=== PATIENT | female | born 1985 | race Caucasian/White ===

== ENCOUNTER 2021-12-25 18:37 | Emergency (ER) | payer OTHER, SELFPAY ==
[2021-12-25 18:47] VITALS: BP 140/82; PULSE 81; RESP 18; TEMP 36.3; O2SAT 100
--- NOTE | 2021-12-25 19:28 | PC.NURSE ---
Dr. Escobedo at bedside to assess pt.
--- NOTE | 2021-12-25 19:32 | ED_ITS ---
HPI - Dental/Oral General Chief complaint: Dental/Oral Stated complaint: dental pain Time Seen by Provider: 12/25/21 19:20 History of Present Illness HPI Narrative: Patient is a 36-year-old female who presents ER with right-sided dental pain. Located on tooth #2. Also at tooth #31. No fevers or chills or sweats. No facial swelling. Has been hurting over the last 2 days. Has been abating the pain with Tylenol and Orajel and other [id number] remedies. She also used some oral mouthwash. Patient reports that prior to arrival she had significant increase in her pain that made her cry. She is concerned she may have an infection. She has history of significant dental decay and is in need of multiple teeth to be pulled. Review of Systems Review of Systems: All systems reviewed & are unremarkable except as noted in HPI and below Constitutional: Constitutional: Denies chills, Denies fatigue and Denies fever(s) ENT: Denies nasal congestion and Denies sore throat Comments: Dental pain Gastrointestinal: Gastrointestinal: Denies nausea and Denies vomiting PMFSH Past Medical History Medical History (Updated 12/25/21 @ 19:37 by Sushil Escobedo MD) Healthy female adult Surgical History Surgical History (Updated 12/25/21 @ 19:35 by Sushil Escobedo MD) No pertinent past surgical history Exam Narrative: GENERAL: Well-appearing, well-nourished, and in no acute distress. HEAD: Normocephalic, atraumatic. ENT: Mucous membranes moist. Poor dentition without obvious dental abscess in the upper or lower aspect of the mouth on the right side. Multiple fractured teeth. NECK: Supple. NEURO: Alert and oriented x3. PSYCH: Normal mood and affect. Course Course Emergency Course: Discharge home with oral antibiotics for presumed dental infection but no abscess. Vital Signs Vital signs: Vital Signs Temperature 97.4 F L 12/25/21 18:47 Pulse Rate 81 12/25/21 18:47 Respiratory Rate 18 12/25/21 18:47 Blood Pressure 140/82 12/25/21 18:47 Pulse Oximetry 100 12/25/21 18:47 Oxygen Delivery Room Air 12/25/21 18:47 Temperature 97.4 F L 12/25/21 18:47 Pulse Rate 81 12/25/21 18:47 Respiratory Rate 18 12/25/21 18:47 Blood Pressure 140/82 12/25/21 18:47 Pulse Oximetry 100 12/25/21 18:47 Oxygen Delivery Room Air 12/25/21 18:47 Discharge Plan Discharge Clinical Impression: Toothache Patient Disposition: Home, Self-Care Condition: Stable Instructions: Toothache (ED) Additional Instructions: Return the ER if you have fever over 100.4 ?F, you cannot breathe, you cannot swallow, you have additional concerns. Prescriptions: New amoxicillin-pot clavulanate 875-125 mg tablet 1 tablet PO Q12H Qty: 14 0RF Follow-up/Referrals: Dental Referral Line [Outside] - 1 Week PHYSICIAN,DIRECTOR [facility] NURSING [Primary Care Provider] -
[2021-12-25] MEDS: Please add drug allergy info to patient profile. 1 EACH XX (19:44)
[2021-12-25] MEDS: HYDROcodone/acetaminophen (*CRX) 5-325 MG TABLET 1 TAB PO (19:51)
== END 2021-12-25 20:30 | disposition home or self-care (01) ==
LOC: ANHED 20:00
PROVIDERS: Emergency Provider Emergency Medicine
DX: K08.89 Other specified disorders of teeth and supporting structures (principal)
CPT/HCPCS: 99283; A9270

== ENCOUNTER 2022-04-29 14:49 | Emergency (ER) | payer BC, SELFPAY ==
[2022-04-29 14:58] VITALS: BP 151/89; PULSE 88; RESP 16; TEMP 36.2; O2SAT 99
--- NOTE | 2022-04-29 17:26 | ED.DENTAL ---
HPI - Dental/Oral General Chief complaint: Dental/Oral Stated complaint: Mouth pain Time Seen by Provider: 04/29/22 17:00 Source: patient Mode of arrival: ambulatory Limitations: no limitations History of Present Illness HPI Narrative: This is a 36-year-old female that presents emergency department for toothache present since this morning. Reports she has had several decaying teeth that have had to be pulled. Reports a left upper molar started hurting her this morning. She took Tylenol with little relief. Denies fever, erythema, edema, or drainage. MD Complaint: tooth pain Location: Tooth # (14) Related Data Allergies Allergy/AdvReac Type Severity Reaction Status Date / Time morphine Allergy Unknown Verified 12/25/21 19:43 Review of Systems Review of Systems: CONSTITUTIONAL: Denies fever ENT: Reports dentalgia All systems reviewed & are unremarkable except as noted in HPI and below PMFSH Past Medical History Medical History (Updated 04/29/22 @ 17:30 by Sindi Tay PA-C) Healthy female adult Surgical History Surgical History (Updated 12/25/21 @ 19:35 by Sushil Escobedo MD) No pertinent past surgical history Social History Social History (Updated 04/29/22 @ 17:27 by Sindi Tay PA-C) Smoking status: Never smoker Exam Narrative: GENERAL: Well-appearing, well-nourished, and in no acute distress. HEAD: Normocephalic, atraumatic. EYES: EOMI. ENT: Mucous membranes moist. Oropharynx without tonsillar hypertrophy exudate or other lesions. Several fractured teeth. Tooth #14 tender to palpation without surrounding erythema or fluctuance to suggest abscess NECK: Supple. No adenopathy or masses. CHEST: No respiratory distress. HEART: Regular rate EXTREMITIES: Normal range of motion. No edema. SKIN: Warm, dry, no rash. NEURO: No focal deficits. Alert and oriented x3. PSYCH: Normal mood and affect Course Vital Signs Vital signs: Vital Signs Temperature 97.1 F L 04/29/22 14:58 Pulse Rate 88 04/29/22 14:58 Respiratory Rate 16 04/29/22 14:58 Blood Pressure 151/89 H 04/29/22 14:58 Pulse Oximetry 99 04/29/22 14:58 Oxygen Delivery Room Air 04/29/22 14:58 Temperature 97.1 F L 04/29/22 14:58 Pulse Rate 88 04/29/22 14:58 Respiratory Rate 16 04/29/22 14:58 Blood Pressure 151/89 H 04/29/22 14:58 Pulse Oximetry 99 04/29/22 14:58 Oxygen Delivery Room Air 04/29/22 14:58 MDM - Dental/Oral MDM Narrative Medical decision making narrative: Patient presents emergency department for dentalgia present since this morning. She is afebrile and nontoxic-appearing. No evidence for abscess on exam. Patient will be discharged with oral antibiotics. Instructed to have close follow-up with her dentist. She was given warnings to return to the ER Differential Diagnosis Differential diagnosis: Likely dental caries, toothache, dental abscess and fracture of tooth Critical Care Time Critical Care Time Critical Care Time: No Discharge Plan Discharge Clinical Impression: Toothache Patient Disposition: Home, Self-Care Condition: Stable Instructions: Antibiotic Form, Toothache (ED) Additional Instructions: Return to the Emergency Department if you experience fever >101, increasing swelling and redness of your tooth, or any other symptoms that are concerning to you Take antibiotic as prescribed. Tylenol or Ibuprofen as needed for pain. Follow up with your dentist Prescriptions: New amoxicillin-pot clavulanate 875-125 mg tablet 1 tablet PO Q12H 10 Days Qty: 20 0RF No Action amoxicillin-pot clavulanate 875-125 mg tablet 1 tablet PO Q12H Qty: 14 0RF hydrocodone-acetaminophen 5-325 mg tablet 1 tablet PO Q6H PRN (Reason: pain) Qty: 10 0RF Follow-up/Referrals: Ramon Elias MD [Primary Care Provider] -
[2022-04-29] MEDS: KETOROLAC 30 MG/ML VIAL (*BKC) IM (17:45)
== END 2022-04-29 18:15 | disposition home or self-care (01) ==
PROVIDERS: Emergency Provider Physician Assistant; PCP Emergency Medicine
DX: K08.89 Other specified disorders of teeth and supporting structures (principal)
CPT/HCPCS: 96372; 99283; J1885

== ENCOUNTER 2022-05-04 18:15 | Emergency (ER) | payer BC, SELFPAY ==
[2022-05-04 18:18] VITALS: BP 149/103; PULSE 90; RESP 18; TEMP 37.4; O2SAT 98
--- NOTE | 2022-05-04 19:05 | PC.NURSE ---
Patient reports that she does not even need a room, she requests pain medications out of the waiting room and to leave the ED. patient told that we are waiting on a room for a doctor to see her and place orders.
--- NOTE | 2022-05-04 19:47 | PC.NURSE ---
patient very loudly on phone complaining about wait times and not being given pain medication in waiting room or being told how long the wait will be. previously attempted to explain to patient that i can not tell her a wait time as i dont know what ambulanace or critcal patient would come in. patient then came to desk again asking why it is taking so long as she has seen several people that came in after her come back and leave before her explained to her that they were not patients they were visitors. patient taken to clean room at this time
--- NOTE | 2022-05-04 20:00 | ED.DENTAL ---
HPI - Dental/Oral General Chief complaint: Dental/Oral Stated complaint: dental pain right side Time Seen by Provider: 05/04/22 19:50 Source: RN notes reviewed History of Present Illness HPI Narrative: Patient presents emergency department from home for dental pain. He states she has history of numerous dental caries and has had several teeth pulled before in the past she states she needs to have surgery to have several other teeth pulled and states she does have a flipper in her upper mouth. She states that she has been having increasing dental pain she states has been taking Tylenol and ibuprofen at home with last dose of ibuprofen this morning. States she has been on Augmentin since last week when she was here for her dental pain but continues to experience dental pain she denies any fevers or chills she denies any known new injury to the teeth Related Data Allergies Allergy/AdvReac Type Severity Reaction Status Date / Time morphine Allergy Unknown Verified 05/04/22 18:22 Review of Systems Review of Systems: Gen.: Denies fevers or chills Eyes: Denies eye pain or visual change ENT: See HPI Respiratory: Denies shortness of breath or cough GI: Denies abdominal pain nausea, emesis Musculoskeletal: Denies neck pain Neuro: Denies headache or weakness Skin: Denies rash Except as documented, all other systems reviewed and negative [facility] Past Medical History Medical History Healthy female adult Surgical History Surgical History (Updated 12/25/21 @ 19:35 by Sushil Escobedo MD) No pertinent past surgical history Social History Social History Smoking status: Never smoker Exam Narrative: APPEARANCE: No acute distress, nontoxic, resting in bed HEENT: Normocephalic, atraumatic, TMs clear bilaterally, nares patent, oral mucosa moist, airway patent, numerous dental caries with tenderness over teeth 1 and 2 that are carious down to the gum mild erythema of the gum with no fluctuance airway patent RESPIRATORY: No respiratory distress MUSCULOSKELETAl: Moves all extremities. NEURO: Awake and alert. Following commands, speech normal, no focal deficits SKIN:: Warm, dry. Normal Color PSYCHIATRIC: Normal affect/mood Course Course Emergency Course: Reviewed old records. Patient has been on Augmentin since the will switch to clindamycin Discussed with patient results of workup and diagnosis. Discussed need for follow-up with primary care, proper use of medication, and reasons to return to the emergency department. Patient understands and agrees to current treatment plan Vital Signs Vital signs: Vital Signs Temperature 99.3 F 05/04/22 18:18 Pulse Rate 90 05/04/22 18:18 Respiratory Rate 18 05/04/22 18:18 Blood Pressure 149/103 H 05/04/22 18:18 Pulse Oximetry 98 05/04/22 18:18 Oxygen Delivery Room Air 05/04/22 18:18 Temperature 99.3 F 05/04/22 18:18 Pulse Rate 90 05/04/22 18:18 Respiratory Rate 18 05/04/22 18:18 Blood Pressure 149/103 H 05/04/22 18:18 Pulse Oximetry 98 05/04/22 18:18 Oxygen Delivery Room Air 05/04/22 18:18 Discharge Plan Discharge Clinical Impression: Dental caries, Toothache Patient Disposition: Home, Self-Care Condition: Stable Instructions: Antibiotic Form, Toothache (ED) Additional Instructions: Return for increasing pain fever or any other symptoms or concern. Stop taking Augmentin instead take clindamycin as prescribed Prescriptions: New ibuprofen 600 mg tablet 600 mg PO TID PRN (Reason: pain) Qty: 14 0RF clindamycin HCl 300 mg capsule 300 mg PO Q8H Qty: 30 0RF No Action amoxicillin-pot clavulanate 875-125 mg tablet 1 tablet PO Q12H Qty: 14 0RF hydrocodone-acetaminophen 5-325 mg tablet 1 tablet PO Q6H PRN (Reason: pain) Qty: 10 0RF amoxicillin-pot clavulanate 875-125 mg tablet 1 tablet
[2022-05-04 20:04] VITALS: BP 122/85; PULSE 88; RESP 18
[2022-05-04] MEDS: CLINDAMYCIN HCL 150 MG CAP 300 MG PO (20:28)
[2022-05-04] MEDS: KETOROLAC 30 MG/ML VIAL (*BKC) IM (20:28)
== END 2022-05-04 20:47 | disposition home or self-care (01) ==
PROVIDERS: Emergency Provider Emergency Medicine; PCP Emergency Medicine
DX: K02.9 Dental caries, unspecified (principal); K08.89 Other specified disorders of teeth and supporting structures
CPT/HCPCS: 96372; 99283; A9270; J1885

== ENCOUNTER 2022-08-25 07:16 | Emergency (ER) | payer OTHER, SELFPAY ==
--- NOTE | ~2022-08-25 | CT_ITS ---
EXAMINATION: CT abdomen pelvis w con INDICATION: Vomiting TECHNIQUE: Computed tomographic images of the abdomen and pelvis were obtained after the administrati on of 100 cc of Omnipaque 350 intravenous contrast. The dose-length product (DLP) was 396.45 mGy-cm. Automated exposure control and iterative reconstruction technique were employed. COMPARISON: None available FINDINGS: The lung bases are clear. The heart size is normal. The liver, spleen, pancreas, and adrena l glands are normal. There is vicarious excretion of contrast into the gallbladder from outside hospi chuy CT performed yesterday. The kidneys are unremarkable. No pathologically enlarged abdominal or pel jimmy lymph nodes are identified. The appendix is normal. No free intraperitoneal gas or evidence of alexis wel obstruction. An IUD is present in the uterus. IMPRESSION: 1. No CT correlate for the patient's symptoms. Reviewed, dictated and finalized at location A.
[2022-08-25 07:17] VITALS: BP 146/82; PULSE 75; RESP 15; TEMP 36.3; O2SAT 97
[2022-08-25 07:43] LABS: Basophils Percent Auto 0.2 % (0.2-1.2); Hemoglobin 14.3 g/dL (12.0-15.0); Immature Granulocyte Absolute 0.14 K/mm3 (0.00-0.031); Immature Granulocyte Percent A 0.6 % (0-0.5); Lymphocytes Absolute Auto 1.69 K/mm3 (0.9-3.2); Lymphocytes Percent Auto 7.1 % (18.3-44.2); Mean Corpuscular HGB Conc 34.9 g/dl (32-36); Mean Corpuscular Hemoglobin 31.4 pg (26-34); Mean Corpuscular Volume 90.1 fl (80-100); Mean Platelet Volume 9.9 fl (7.4-10.4); Monocytes Absolute Auto 1.5 K/mm3 (0.1-0.6); Monocytes Percent Auto 6.3 % (2.6-8.5); Neutrophils Absolute Auto 20.3 K/mm3 (1.3-6.7); Neutrophils Percent Auto 85.8 % (45.5-73.1); Platelet Count Result 314 k/mm3 (150-375); Red Blood Count 4.55 M/mm3 (4.2-5.4); White Blood Count 23.7 K/mm3 (4.5-10.0)
[2022-08-25 07:52] LABS: Appearance Urine Cloudy (Clear); Bacteria Urine None Seen /hpf; Bilirubin Urine Negative (Negative); Blood Urine 1+ (Negative); Color Urine Yellow (Yellow); Glucose Urine UA Negative (Negative); Ketones Urine Trace mg/dL (Negative); Leukocyte Esterase Ur Negative LEU/UL (Negative); Nitrate Urine Negative (Negative); Non Pathogenic Casts 0-2; Protein Urine 1+ mg/dL (Negative); Specific Grav Ur 1.024 (1.001-1.035); Squamous Epithelial Cell Urine Few /hpf (Few); Urobilinogen Urine 0.2 mg/dL (<2.0); WBC Urine 0-5 /hpf; pH Urine 6.5 (5.0-9.0)
[2022-08-25 07:54] LABS: Alanine Aminotransferase 25 U/L (6-35); Albumin Level 4.8 g/dL (3.5-5.1); Alkaline Phosphatase 66 U/L (38-126); Anion Gap 9 mmol/L (8-16); Aspartate Amino Transferase 31 U/L (14-36); Bilirubin,Total 1.6 mg/dL (0.2-1.3); Blood Urea Nitrogen 15 mg/dL (7-17); Calcium 9.4 mg/dL (8.4-10.2); Carbon Dioxide 28 mmol/L (22-30); Chloride 99 mmol/L (98-107); Estimated CRCL calculation 98 ml/min; Estimated Glomerular Filt Rate > 60; Glucose 135 mg/dL (65-110); Lipase 39 U/L (23-300); Potassium 3.4 mmol/L (3.4-5.0); Sodium 136 mmol/L (137-145)
[2022-08-25] MEDS: ONDANSETRON INJ 4 MG/2 ML VIAL IV PUSH ×2 (07:56→08:50)
[2022-08-25] MEDS: SODIUM CHLORIDE 0.9% IV 1,000 ML 999 ML IV CONT (07:56)
[2022-08-25 08:02] LABS: Add Urine Microscopic? YES
--- NOTE | 2022-08-25 08:04 | ED.NAVMDI ---
HPI - Nausea/Vomiting/Diarrhea General Chief complaint: Nausea/Vomiting/Diarrhea Stated complaint: N/V, Im extremely dehydrated Time Seen by Provider: 08/25/22 07:29 History of Present Illness HPI Narrative: Patient is a 37-year-old female who presents ER with reports of dehydration. Patient reports she has been having persistent nausea and vomiting over the last 24 hours. She was seen yesterday at [facility] in [place] where she had IV fluid, was prescribed metoclopramide, and discharged from the hospital. She reports she had a CT scan that was unremarkable. She cannot keep down her medications so she presented here for further evaluation. No urinary frequency urgency or dysuria. Reports she is not urinating due to the fact that she is dehydrated. No chest pain or chest pressure. No additional concerns. Related Data Allergies Allergy/AdvReac Type Severity Reaction Status Date / Time morphine Allergy Unknown Verified 08/25/22 07:31 Review of Systems Review of Systems: All systems reviewed & are unremarkable except as noted in HPI and below Constitutional: Constitutional: Denies chills, Reports fatigue and Denies fever(s) ENT: Denies nasal congestion and Denies sore throat Cardiovascular: Cardiovascular: Denies chest pain and Denies radiating jaw, neck or arm pain Gastrointestinal: Gastrointestinal: Denies abdominal pain, Denies diarrhea, Reports nausea and Reports vomiting Genitourinary: Genitourinary: Denies nocturia, Denies dysuria and Denies flank pain PMFSH Past Medical History Medical History Healthy female adult Surgical History Surgical History (Updated 12/25/21 @ 19:35 by Sushil Escobedo MD) No pertinent past surgical history Social History Social History Smoking status: Never smoker Exam Narrative: GENERAL: Well-appearing, well-nourished, and in no acute distress. HEAD: Normocephalic, atraumatic. ENT: Mucous membranes moist. NECK: Supple. CHEST: Clear to auscultation. No respiratory distress. HEART: Regular rate and rhythm. Normal peripheral pulses. ABDOMEN: Soft, nontender, nondistended. EXTREMITIES: Normal range of motion. No edema. SKIN: Warm, dry, no rash. NEURO: Alert and oriented x3. PSYCH: Normal mood and affect. Course Course Emergency Course: Patient resting comfortably. She is tolerating oral intake. Chest feels better after GI cocktail. We attempted to get results from [facility] but they were using a different name and we are using her name. Patient does have a significant leukocytosis but is felt to be a stress reaction due to her dry heaving. After recent paperwork we have still not heard from them. Patient feels comfortable discharge home. Vital Signs Vital signs: Vital Signs Temperature 97.4 F L 08/25/22 07:17 Pulse Rate 75 08/25/22 07:17 Respiratory Rate 15 08/25/22 07:17 Blood Pressure 146/82 H 08/25/22 07:17 Pulse Oximetry 97 08/25/22 07:17 Oxygen Delivery Room Air 08/25/22 07:17 Temperature 98.2 F 08/25/22 13:27 Pulse Rate 79 08/25/22 13:27 Respiratory Rate 18 08/25/22 13:27 Blood Pressure 169/107 H 08/25/22 13:27 Pulse Oximetry 98 08/25/22 13:27 Oxygen Delivery Room Air 08/25/22 07:17 MDM - Nausea/Vomiting/Diarrhea Lab Data 08/25/22 07:34 08/25/22 07:34 Labs: Lab Results 08/25/22 08/25/22 08/25/22 Range/Units 07:34 07:34 07:42 WBC 23.7 H (4.5-10.0) K/mm3 RBC 4.55 (4.2-5.4) M/mm3 Hgb 14.3 (12.0-15.0) g/dL Hct 41.0 (37.0-47.0) % MCV 90.1 (80-100) fl MCH 31.4 (26-34) pg MCHC 34.9 (32-36) g/dl RDW 13.0 (11.5-14.5) % Plt Count 314 (150-375) k/mm3 MPV 9.9 (7.4-10.4) fl Immature Gran % (Auto) 0.6 H (0-0.5) % Neut % (Auto) 85.8 H (45.5-73.1) % Lymph % (Auto) 7.1 L (18.3-44.2) %
--- NOTE | 2022-08-25 08:14 | PC.NURSE ---
Records release signed by patient for medical records from yesterday at [facility]
--- NOTE | 2022-08-25 09:10 | PC.NURSE ---
Call received from Nursing instrumentation supervisor at [facility] [place]. States patient not only was not seen in their facility yesterday, but has not ever been to their facility as a patient. MD aware. Will inquire again as to where patient was seen yesterday. Pt currently in CT scan.
[2022-08-25] MEDS: BELLADONNA ALK/PHENOB ELIX 10 ML, MAG HYDROX/ALUMINUM HYD/SIMETH 30 ML, LIDOCAINE HCL 2... PO (09:53)
[2022-08-25 09:59] VITALS: BP 158/91; PULSE 64; RESP 16; O2SAT 99
[2022-08-25 13:27] VITALS: BP 169/107; PULSE 79; RESP 18; TEMP 36.8; O2SAT 98
== END 2022-08-25 13:27 | disposition home or self-care (01) ==
PROVIDERS: Emergency Provider Emergency Medicine
DX: R11.2 Nausea with vomiting, unspecified (principal)
CPT/HCPCS: 36415; 74177; 80053; 81001; 81025; 83690; 85025; 96361; 96374; 96376; 99284; A9270; J2405; J7030; Q9967

== ENCOUNTER 2022-08-26 19:01 | Emergency (ER) | payer OTHER, SELFPAY ==
[2022-08-26 19:12] VITALS: BP 153/89; PULSE 72; RESP 18; TEMP 36.5; O2SAT 98
[2022-08-26 20:42] VITALS: BP 157/91; PULSE 67
[2022-08-26 20:43] VITALS: BP 155/98; PULSE 75
[2022-08-26 20:44] VITALS: BP 177/97; PULSE 69
[2022-08-26 20:45] LABS: Basophils Absolute Auto 0.1 K/mm3 (0.0-0.1); Basophils Percent Auto 0.3 % (0.2-1.2); Hematocrit 39.8 % (37.0-47.0); Hemoglobin 14.1 g/dL (12.0-15.0); Immature Granulocyte Percent A 0.6 % (0-0.5); Lymphocytes Absolute Auto 1.84 K/mm3 (0.9-3.2); Lymphocytes Percent Auto 10.3 % (18.3-44.2); Mean Corpuscular HGB Conc 35.4 g/dl (32-36); Mean Corpuscular Volume 87.5 fl (80-100); Mean Platelet Volume 9.8 fl (7.4-10.4); Monocytes Absolute Auto 1.2 K/mm3 (0.1-0.6); Monocytes Percent Auto 6.9 % (2.6-8.5); Neutrophils Absolute Auto 14.6 K/mm3 (1.3-6.7); Neutrophils Percent Auto 81.9 % (45.5-73.1); Platelet Count Result 286 k/mm3 (150-375); Red Blood Count 4.55 M/mm3 (4.2-5.4); Red Cell Distribution Width 12.2 % (11.5-14.5); White Blood Count 17.8 K/mm3 (4.5-10.0)
[2022-08-26 20:50] LABS: Alanine Aminotransferase 27 U/L (6-35); Albumin Level 4.7 g/dL (3.5-5.1); Alkaline Phosphatase 61 U/L (38-126); Anion Gap 6 mmol/L (8-16); Aspartate Amino Transferase 37 U/L (14-36); Blood Urea Nitrogen 14 mg/dL (7-17); Calcium 8.7 mg/dL (8.4-10.2); Carbon Dioxide 29 mmol/L (22-30); Chloride 97 mmol/L (98-107); Estimated CRCL calculation 85 ml/min; Estimated Glomerular Filt Rate > 60; Glucose 100 mg/dL (65-110); Lipase 28 U/L (23-300); Potassium 3.2 mmol/L (3.4-5.0); Sodium 132 mmol/L (137-145)
[2022-08-26] MEDS: SODIUM CHLORIDE 0.9% IV 2,000 ML 999 ML IV CONT (20:54)
[2022-08-26 20:55] LABS: Influenza A QL RT-PCR Negative (Negative); Influenza B QL RT-PCR Negative (Negative); SARS-CoV-2 RNA PCR Negative (Negative)
[2022-08-26] MEDS: PANTOPRAZOLE SODIUM IV 40 MG VIAL IV PUSH (20:55)
[2022-08-26] MEDS: PROMETHAZINE HCL 25 MG/ML AMPUL 12.5 MG IV PUSH (20:55)
--- NOTE | 2022-08-26 21:49 | ED.NAVMDI ---
HPI - Nausea/Vomiting/Diarrhea General Chief complaint: Nausea/Vomiting/Diarrhea Stated complaint: N/V, third ER visit, Zofran not helping Time Seen by Provider: 08/26/22 19:57 Source: patient and RN notes reviewed Mode of arrival: ambulatory Limitations: no limitations History of Present Illness HPI Narrative: This is a 37 year old female who presents for evaluation of nausea and vomiting. SHe states her symptoms started on Friday. She was evaluated at [facility] on Friday. She was given antiemetics and CT abdomen. She reports her CT was negative at that time. She was discharge home and her symptoms returned. She was evaluated in ER yesterday for same symptoms. She was given medication and she had an CT abdomen and pelvis. CT was unremarkable. Patient states she went home and she started having nausea and vomiting again. She tried taking zofran without relief. She denies abdominal pain, fever, chills. She states she feels like she has virus such as covid or influenza. Related Data Allergies Allergy/AdvReac Type Severity Reaction Status Date / Time morphine Allergy Unknown Verified 08/25/22 07:31 Review of Systems Constitutional: Constitutional: Denies weakness Cardiovascular: Cardiovascular: Denies syncope, Denies rapid heart rate, Denies irregular heart rhythm, Denies leg edema and Denies dyspnea Respiratory: Respiratory: Denies chest congestion, Denies hemoptysis, Denies excessive phlegm production and Denies dyspnea Gastrointestinal: Gastrointestinal: Denies abdominal pain, Denies hematochezia, Denies diarrhea, Reports nausea and Reports vomiting Genitourinary: Genitourinary: Denies hematuria and Denies dysuria Musculoskeletal: Musculoskeletal: Denies joint swelling, Denies loss of height and Denies muscle weakness Neurologic: Denies syncope, Denies focal weakness and Denies weakness PMFSH Past Medical History Medical History Healthy female adult Surgical History Surgical History (Updated 12/25/21 @ 19:35 by Sushil Escobedo MD) No pertinent past surgical history Social History Social History Smoking status: Never smoker Exam Narrative: GENERAL: Well-appearing, well-nourished, and in no acute distress. HEAD: Normocephalic, atraumatic EYES: PERRLA and EOMI, conjunctiva clear without discharge THROAT:Mucous membranes moist, Oropharynx normal without erythema, exudate, peritonsillar swelling or fluctuance NECK: Supple, without lymphadenopathy or mass RESPIRATORY: No respiratory distress, Airway patent, Respirations non-labored, Clear to auscultation without rales, rhonchi or wheeze HEART: Regular rate and rhythm. No murmur heard. Normal peripheral pulses. ABDOMEN: Soft, nontender, nondistended, normal active bowel sounds. No masses. No rebound or guarding, No organomegaly. EXTREMITIES: No edema, normal strength with full range of motion. SKIN: Warm, dry, normal color without rash NEURO: Alert and oriented x3. CN 2-12 grossly intact. No focal deficits. PSYCH: Normal mood and affect. Neuro: Speech: No Abnormal speech present Course Reevaluation(s) Reevaluation #1: Patient is resting comfortably. She states she feels better. She was able to urinate without any difficulty. She denies nausea and vomiting. She wants to try to eat and drink Date: 08/26/22 Time: 22:22 Reevaluation #2: Patient states she feels fine. She has not had any nausea or vomiting in ER. She was able eat and drink in ER. She states she feels comfortable with discharge home. Date: 08/26/22 Time: 23:34 Vital Signs Vital signs: Vital Signs Temperature 97.7 F 08/26/22 19:12 Pulse Rate 72 08/26/22 19:12 Respiratory Rate 18 08/26/22 19:12 Blood Pressure 153/89 H 08/26/22 19:12 Pulse Oximetry 98 08/26/22 19:12 Temperature 97.7 F 08/26/22 19:12 Pulse Rate 75 08/26/22 23:54 Resp
--- NOTE | 2022-08-26 22:36 | PC.NURSE ---
Pt passed PO challenge
--- NOTE | 2022-08-26 22:41 | PC.NURSE ---
Pt drank half a glass of water and 1 carin cracker and tolerated it fine. Pt denies any nausea or urge to vomit.
[2022-08-26 23:54] VITALS: BP 165/94; PULSE 75; RESP 14; O2SAT 100
== END 2022-08-27 00:06 | disposition home or self-care (01) ==
PROVIDERS: Emergency Provider General Practice
DX: R11.2 Nausea with vomiting, unspecified (principal); E86.0 Dehydration; Z20.822 Contact with and (suspected) exposure to COVID-19
CPT/HCPCS: 36415; 80053; 81025; 83690; 85025; 87636; 96361; 96374; 96375; 99284; C9113; J2550; J7030

== ENCOUNTER 2022-11-23 23:04 | Emergency (ER) | payer OTHER, SELFPAY ==
[2022-11-23 23:05] VITALS: BP 155/85; PULSE 89; RESP 19; TEMP 36.4; O2SAT 99
--- NOTE | 2022-11-23 23:52 | ED.DENTAL ---
HPI - Dental/Oral General Chief complaint: Dental/Oral <MAGY Romo Last Filed: 11/24/22 00:21> Stated complaint: Right sided dental/mouth pain <MAGY Romo Last Filed: 11/24/22 00:21> Time Seen by Provider: 11/23/22 23:44 <MAGY Romo Last Filed: 11/24/22 00:21> Source: patient <MAGY Romo Last Filed: 11/24/22 00:21> Mode of arrival: ambulatory <MAGY Romo Last Filed: 11/24/22 00:21> Limitations: no limitations <MAGY Romo Last Filed: 11/24/22 00:21> History of Present Illness HPI Narrative: Patient is a 37-year-old female who presents ED with report of right upper dental pain. Patient reports having known dental fractures and dental caries. She states she has been unable to get into a dentist due to insurance issues. She reports the pain has been worsening since yesterday. She complains of difficulty chewing. Denies difficulty breathing or swallowing. Denies fever. Denies vomiting. She has been taking Tylenol and ibuprofen without much relief. <MAGY Romo Last Filed: 11/24/22 00:21> Related Data Allergies/adverse reactions: Allergies Allergy/AdvReac Type Severity Reaction Status Date / Time morphine Allergy Unknown Verified 11/23/22 23:05 <MAGY Romo Last Filed: 11/24/22 00:21> Review of Systems Review of Systems: CONSTITUTIONAL: Denies fever, chills, or sweats. ENT: See HPI. CARDIOVASCULAR: Denies chest pain. RESPIRATORY: Denies dyspnea. GASTROINTESTINAL: Denies abdominal pain, nausea, vomiting. <MAGY Romo Last Filed: 11/24/22 00:21> All systems reviewed & are unremarkable except as noted in HPI and below <MAGY Romo Last Filed: 11/24/22 00:21> [facility] Past Medical History Medical History: Medical History Healthy female adult <Alea Cuevas PA-C - Last Filed: 11/24/22 00:21> Surgical History Surgical History: Surgical History (Updated 12/25/21 @ 19:35 by Sushil Escobedo MD) No pertinent past surgical history <Alea Cuevas PA-C - Last Filed: 11/24/22 00:21> Social History Social History: Social History Smoking status: Never smoker <Alea Cuevas PA-C - Last Filed: 11/24/22 00:21> Exam Narrative: GENERAL: Well appearing, well-nourished, non-toxic, in no acute distress. HEAD: Normocephalic, atraumatic. ENT: Diffuse dental decay, scattered caries. Two upper posterior molars on right side are fractured. TTP surrounding R upper posterior gumline. No focal abscess. No stridor. No trismus. NECK: Supple. No adenopathy, no masses. RESPIRATORY: Airway patent, respirations nonlabored. Clear to auscultation bilaterally, no rales, rhonchi, wheezing. CARDIOVASCULAR: RRR without murmurs, rubs, or gallops. Radial pulses 2+ and equal bilaterally. MUSCULOSKELETAL: Moves all extremities. Strength/ROM intact without gross deformities. SKIN: Warm, dry, normal color. No rashes. NEURO: A&O X3. Speech clear. Cranial nerves II-XII grossly intact. Steady gait. No ataxic movements. PSYCHIATRIC: Appropriate mood and affect. Normal interaction. <Alea Cuevas PA-C - Last Filed: 11/24/22 00:21> Course ORCHESTRATOR/PA Physician Supervision This is a was performed by both a physician and an APC. I performed all aspects of the MDM as documented w/ the following additions: 37-year-old presenting with dental pain. Given pain medication and antibiotics. Discharged w/ dental follow-up All questions answered. Patient in agreement w/ disposition. <Codey Ramos MD - Last Filed: 11/24/22 03:22> Vital Signs Vital signs: Vital Signs Temperature 97.5 F L 11/23/22 23:05 Pulse Rate 89 11/23/22 23:05 Respiratory Rate 19 11/23
[2022-11-24] MEDS: AMOXICILLIN/CLAVULANATE K 875-125 MG TAB 1 TABLET PO (00:15)
[2022-11-24] MEDS: HYDROcodone/acetaminophen (*CRX) 5-325 MG TABLET 1 TAB PO (00:15)
== END 2022-11-24 00:36 | disposition home or self-care (01) ==
LOC: ANHED 11-24 00:13
PROVIDERS: Emergency Provider Physician Assistant
DX: K02.9 Dental caries, unspecified (principal); K03.81 Cracked tooth
CPT/HCPCS: 99283; A9270

== ENCOUNTER 2022-11-24 20:40 | Emergency (ER) | payer OTHER, SELFPAY ==
[2022-11-24 20:42] VITALS: BP 163/108; PULSE 99; RESP 16; TEMP 36.3; O2SAT 97
--- NOTE | 2022-11-24 21:42 | ED.DENTAL ---
HPI - Dental/Oral General Chief complaint: Dental/Oral Stated complaint: dental pain Time Seen by Provider: 11/24/22 21:09 History of Present Illness HPI Narrative: This is a 37-year-old female, seen here yesterday for dental caries and pain, who returns to the emergency department complaining of pain. The patient states she started her antibiotics this afternoon and took her previously prescribed pain medication but states that is not helping. She continues to complain of moderate to severe, dull right maxillary pain. She denies difficulty swallowing or difficulty breathing. Related Data Allergies Allergy/AdvReac Type Severity Reaction Status Date / Time morphine Allergy Unknown Verified 11/24/22 20:40 Review of Systems Review of Systems: CONSTITUTIONAL: Denies fever, chills, or sweats. EYES: Denies visual changes, redness, or discharge. ENT: Right maxillary pain denies rhinorrhea, congestion, sore throat, or otalgia. CARDIOVASCULAR: Denies chest pain, palpitations, or edema. RESPIRATORY: Denies cough or dyspnea. GENITOURINARY: Unknown last menstrual period, patient has a Mirena IUD in place. Denies dysuria or hematuria. NEUROLOGIC: Denies headache, numbness, dizziness, or weakness. PSYCHIATRIC: Denies anxiety or depression. PMFSH Past Medical History Medical History Healthy female adult Surgical History Surgical History No pertinent past surgical history Social History Social History Smoking status: Never smoker Exam Narrative: GENERAL: Well-developed, well-nourished, and in no acute distress. Appears uncomfortable HEAD: Normocephalic, atraumatic. EYES: PERRLA and EOMI. ENT: Mild swelling, dental caries and tooth fracture noted to the right maxilla. Nares clear, no rhinorrhea or epistaxis. Mucous membranes moist. Oropharynx without tonsillar hypertrophy exudate or other lesions. NECK: Supple. Mild right anterior cervical adenopathy. No masses. CHEST: Clear to auscultation. No respiratory distress. No wheezes rales or rhonchi HEART: Regular rate and rhythm. No murmur heard. Normal peripheral pulses. NEURO: No focal deficits. Alert and oriented x3. PSYCH: Normal mood and affect. Course Course Emergency Course: 21:44 - The patient was given IM Toradol with improvement of her pain. She was previously discharged with Augmentin and Cos Cob. I advised the patient to use NSAIDs for baseline pain control and reserve opioids for uncontrolled pain. Discussed return and emergency precautions including signs/symptoms of airway compromise and respiratory distress. The patient voiced understanding and is comfortable with the plan. All questions answered to her satisfaction. Vital Signs Vital signs: Vital Signs Temperature 97.3 F L 11/24/22 20:42 Pulse Rate 99 11/24/22 20:42 Respiratory Rate 16 11/24/22 20:42 Blood Pressure 163/108 H 11/24/22 20:42 Pulse Oximetry 97 11/24/22 20:42 Oxygen Delivery Room Air 11/24/22 20:42 Temperature 98.6 F 11/24/22 22:52 Pulse Rate 68 11/24/22 22:52 Respiratory Rate 16 11/24/22 22:52 Blood Pressure 120/86 11/24/22 22:52 Pulse Oximetry 98 11/24/22 22:52 Oxygen Delivery Room Air 11/24/22 20:42 MDM - Dental/Oral MDM Narrative Medical decision making narrative: Plan: Pain control, dental follow-up Differential Diagnosis Differential diagnosis: Likely dental caries, toothache, dental abscess, fracture of tooth and other Discharge Plan Discharge Clinical Impression: Dental abscess Fracture of tooth Qualifiers: Encounter type: subsequent encounter Fracture type: closed Fracture healing: with delayed healing Qualified Code(s): S02.5XXG - Fracture of tooth (traumatic), subsequent encounter for fracture with delayed healing Patient Disposition: Home
[2022-11-24] MEDS: KETOROLAC (*BKC) 60 MG/2 ML VIAL IM (21:44)
[2022-11-24 22:52] VITALS: BP 120/86; PULSE 68; RESP 16; TEMP 37; O2SAT 98
== END 2022-11-24 22:53 | disposition home or self-care (01) ==
PROVIDERS: Emergency Provider Preventive Medicine Aerospace Medicine
DX: K04.7 Periapical abscess without sinus (principal); K03.81 Cracked tooth; Z97.5 Presence of (intrauterine) contraceptive device
CPT/HCPCS: 96372; 99283; J1885

== ENCOUNTER 2023-01-28 16:50 | Emergency (ER) | payer OTHER, SELFPAY ==
[2023-01-28 17:09] VITALS: BP 165/100; PULSE 71; RESP 18; TEMP 36.5; O2SAT 100
--- NOTE | 2023-01-28 17:52 | ED.GENADULT ---
HPI - General Adult General Chief complaint: Dental/Oral Stated complaint: dental pain Time Seen by Provider: 01/28/23 17:48 History of Present Illness HPI narrative: Shayy Deshpande is a 37 y/o female who presents with reports of right upper dental pain that started today. She reports she has an established dentist that plans to pull out her teeth. Denies fever/chills. Tried taking tylenol earlier this morning without relief. Related Data Allergies Allergy/AdvReac Type Severity Reaction Status Date / Time morphine Allergy Unknown Verified 01/28/23 16:50 Review of Systems Review of Systems: CONSTITUTIONAL: Denies fever, chills, or sweats. EYES: Denies visual changes, redness, or discharge. ENT: Denies rhinorrhea, congestion, sore throat, complains of right upper dental pain CARDIOVASCULAR: Denies chest pain, palpitations, or edema. RESPIRATORY: Denies cough or dyspnea. GASTROINTESTINAL: Denies abdominal pain, nausea, vomiting, or diarrhea. GENITOURINARY: Denies dysuria or hematuria. SKIN: Denies rash or itching. MUSCULOSKELETAL: Denies back pain, joint pain, or myalgia. NEUROLOGIC: Denies headache, numbness, dizziness, or weakness. PSYCHIATRIC: Denies anxiety or depression. [facility] Past Medical History Medical History Healthy female adult Surgical History Surgical History No pertinent past surgical history Social History Social History Smoking status: Never smoker Exam Narrative: GENERAL: Well-appearing, well-nourished, and in no acute distress. HEAD: Normocephalic, atraumatic. EYES: PERRLA and EOMI. ENT: Nares clear, no rhinorrhea or epistaxis. Mucous membranes moist. Oropharynx without tonsillar hypertrophy exudate or other lesions. Moderate tooth decay to the right upper teeth no palpable dental abscess palpated NECK: Supple. No adenopathy or masses. No carotid bruits or JVD CHEST: Clear to auscultation. No respiratory distress. No wheezes rales or rhonchi HEART: Regular rate and rhythm. No murmur heard. Normal peripheral pulses. ABDOMEN: Soft, nontender, nondistended, normal active bowel sounds. EXTREMITIES: Normal range of motion. No edema. SKIN: Warm, dry, no rash. NEURO: No focal deficits. Alert and oriented x3. PSYCH: Normal mood and affect. Course Vital Signs Vital signs: Vital Signs Temperature 36.5 C 01/28/23 17:09 Pulse Rate 71 01/28/23 17:09 Respiratory Rate 18 01/28/23 17:09 Blood Pressure 165/100 H 01/28/23 17:09 Pulse Oximetry 100 01/28/23 17:09 Oxygen Delivery Room Air 01/28/23 17:09 Temperature 36.5 C 01/28/23 17:09 Pulse Rate 71 01/28/23 17:09 Respiratory Rate 18 01/28/23 17:09 Blood Pressure 165/100 H 01/28/23 17:09 Pulse Oximetry 100 01/28/23 17:09 Oxygen Delivery Room Air 01/28/23 17:09 Medical Decision Making MDM Narrative Medical decision making narrative: On exam pt is found to have right upper dental decay No palpable fluctuance or evidence of an abscess noted airway patent afebrile no systemics symptoms noted plan to start antibiotics and treat pain D/c home with close follow up with her dentist that is already established. Differential Diagnosis Differential Diagnosis: dental decay / tooth abscess/ Medical Records Medical records reviewed: Yes I reviewed the external patient's medical records. Vital Signs Vital Signs: Vital Signs Temperature 36.5 C 01/28/23 17:09 Pulse Rate 71 01/28/23 17:09 Respiratory Rate 18 01/28/23 17:09 Blood Pressure 165/100 H 01/28/23 17:09 Pulse Oximetry 100 01/28/23 17:09 Oxygen Delivery Room Air 01/28/23 17:09 Temperature 36.5 C 01/28/23 17:09 Pulse Rate 71 01/28/23 17:09 Respiratory Rate 18 01/28/23 17:09 Blood Pressure 165/100 H 01/28/23 17:09 Pulse Oximetry 100 01/04
[2023-01-28] MEDS: PENICILLIN V POTASSIUM 250 MG TABLET 500 MG PO (18:07)
[2023-01-28] MEDS: LIDOCAINE HCL 2% VISC SOLN 15 ML UDC PO (18:08)
[2023-01-28] MEDS: NAPROXEN 500 MG TABLET PO (18:08)
== END 2023-01-28 18:12 | disposition home or self-care (01) ==
PROVIDERS: Emergency Provider Nurse Practitioner Family
DX: K02.9 Dental caries, unspecified (principal)
CPT/HCPCS: 99283; A9270

== ENCOUNTER 2023-03-27 08:51 | Emergency (ER) | payer OTHER, SELFPAY ==
[2023-03-27 08:52] VITALS: BP 141/96; PULSE 91; RESP 18; TEMP 36.2; O2SAT 100
--- NOTE | 2023-03-27 09:33 | ED.HA ---
HPI - Headache General Chief Complaint: Headache Stated Complaint: headache/neck pain Time Seen by Provider: 03/27/23 09:09 Source: patient Mode of arrival: ambulatory Limitations: no limitations History of Present Illness HPI Narrative: Patient is a pleasant 37-year-old female with past medical history as noted in chart to present to emergency department ambulatory with a steady gait dropped off by her spouse for evaluation of headache that has been going on for about 4 days. The onset was gradual. She states it goes to the back of her head the lower part of her scalp in goes up around her forehead. She denies any significant history of migraines. Denies any fever, chills. Denies any head or neck injury. Denies numbness or tingling upper lower extremities, neck pain, dizziness, body aches, visual changes, body aches, sore throat, ear pain, cough, chest pain, shortness of breath, urinary symptoms. Related Data Allergies Allergy/AdvReac Type Severity Reaction Status Date / Time morphine Allergy Unknown Verified 01/28/23 16:50 Review of Systems Review of Systems: CONSTITUTIONAL: Denies fever, chills, or sweats. EYES: Denies visual changes, redness, or discharge. ENT: Denies rhinorrhea, congestion, sore throat, or otalgia. CARDIOVASCULAR: Denies chest pain, palpitations, or edema. RESPIRATORY: Denies cough or dyspnea. GASTROINTESTINAL: Denies abdominal pain, nausea, vomiting, or diarrhea. GENITOURINARY: Denies dysuria or hematuria. SKIN: Denies rash or itching. MUSCULOSKELETAL: Denies back pain, joint pain, or myalgia. denies neck pain. NEUROLOGIC: +headache. Denies numbness or weakness. PSYCHIATRIC: Denies anxiety or depression. All systems reviewed & are unremarkable except as noted in HPI and below PMFSH Past Medical History Medical History Healthy female adult Surgical History Surgical History No pertinent past surgical history Social History Social History Smoking status: Never smoker Exam Narrative: GENERAL: Well-appearing, well-nourished, and in no acute distress. HEAD: Normocephalic, atraumatic. EYES: PERRLA and EOMI. ENT: Nares clear, no rhinorrhea or epistaxis. Mucous membranes moist. NECK: Supple. full ROM noted. no rigidity. no torticollis. no rash. full ROM CHEST: Clear to auscultation. No respiratory distress. HEART: Regular rate and rhythm. No murmur heard. Normal peripheral pulses. ABDOMEN: Soft, nontender, nondistended, normal active bowel sounds. EXTREMITIES: Normal range of motion. No edema. SKIN: Warm, dry, no rash. NEURO: A&O x4, UE and LE distal pulses, sensation, cap refill, temperature, patellar reflex and strength intact and equal bilaterally.?Cranial nerves grossly intact. steady gait. negative Romberg PSYCH: Normal mood and affect. Course Vital Signs Vital signs: Vital Signs Temperature 97.2 F L 03/27/23 08:52 Pulse Rate 91 03/27/23 08:52 Respiratory Rate 18 03/27/23 08:52 Blood Pressure 141/96 H 03/27/23 08:52 Pulse Oximetry 100 03/27/23 08:52 Oxygen Delivery Room Air 03/27/23 08:52 Temperature 97.2 F L 03/27/23 08:52 Pulse Rate 66 03/27/23 11:29 Respiratory Rate 18 03/27/23 11:29 Blood Pressure 120/85 03/27/23 11:29 Pulse Oximetry 100 03/27/23 11:29 Oxygen Delivery Room Air 03/27/23 08:52 MDM - Headache MDM Narrative Medical decision making narrative: presents to the emergency department for headache. Patient is hemodynamically stable. No focal neurological or cranial nerve deficits on exam. No meningeal signs. The headache was gradual in onset, it is not exertional and does not appear consistent with subarachnoid hemorrhage or intracranial bleeding. No trauma. Patient is given headache cocktail including zofran, ketorolac, fluids and also valium po as there
[2023-03-27] MEDS: SODIUM CHLORIDE 0.9% IV 1,000 ML 999 ML IV CONT (09:55)
[2023-03-27] MEDS: KETOROLAC 30 MG/ML VIAL (*BKC) IV PUSH (09:56)
[2023-03-27] MEDS: ONDANSETRON INJ 4 MG/2 ML VIAL IV PUSH (09:56)
[2023-03-27] MEDS: diazePAM (*CRX) 5 MG TABLET PO (09:56)
[2023-03-27 11:29] VITALS: BP 120/85; PULSE 66; RESP 18; O2SAT 100
== END 2023-03-27 11:31 | disposition home or self-care (01) ==
PROVIDERS: Emergency Provider Nurse Practitioner
DX: G44.209 Tension-type headache, unspecified, not intractable (principal)
CPT/HCPCS: 96361; 96374; 96375; 99284; A9270; J1885; J2405; J7030

== ENCOUNTER 2023-12-01 17:15 | Emergency (ER) | payer OTHER, SELFPAY ==
[2023-12-01 17:20] VITALS: BP 138/94; PULSE 98; RESP 16; TEMP 36.7; O2SAT 100
[2023-12-01 18:56] VITALS: O2SAT 100
--- NOTE | 2023-12-01 19:19 | ED.SKABFB ---
HPI - Skin/Abscess/Foreign Bdy General Chief complaint: Allergic Reaction Stated complaint: RASH Time Seen by Provider: 12/01/23 19:02 Source: patient Limitations: no limitations History of Present Illness HPI narrative: Patient is a 38-year-old female sent to the emergency department complaining of an itchy rash. Patient states she was out in the [place] doing some work in her tall grass this past weekend when she started to notice small little bumps on her body diffusely there are itchy, she has been taking Benadryl and oral Benadryl. Patient denies any history of past. Patient denies any new exposures to food or medications. Patient denies any chest pain difficulty breathing, recent injuries or recent illness, nausea, vomiting, fever. Patient denies anyone having a similar rash to her. Related Data Allergies Allergy/AdvReac Type Severity Reaction Status Date / Time morphine Allergy Unknown Verified 12/01/23 17:23 Review of Systems Review of Systems: A 10 system review of systems was completed on the patient and is negative except for what is stated in the HPI. Nursing and ancillary documentation was reviewed. [facility] Past Medical History Medical History Healthy female adult Surgical History Surgical History No pertinent past surgical history Social History Social History Smoking status: Never smoker Comments At time of signature, I have reviewed and agree with nursing past medical, surgical, social and family history unless otherwise noted. Please see the nursing chart for further information. There is no relevant family history pertinent to the presenting complaint. Exam Narrative: CONST: No acute distress. Well nourished. HENMT: Head is normocephalic and atraumatic. Moist mucous membranes. No posterior oropharynx erythema. EYES: No conjunctival icterus, injection, or pallor. PERRL. NECK: No meningeal signs. RESP: Able to speak in full sentences. Normal respiratory effort. CTAB. CARDIO: Regular rate. Regular rhythm. 2+ DP and radial pulses bilaterally. GI: Nondistended. No tenderness to palpation. Soft. : No CVA tenderness to palpation. SKIN: Diffuse small punctate erythematous lesions of the extremities and the back. NEURO: Oriented x3. Moves all extremities. EXTREM/MSK/BACK: No pedal edema. PSYCH: Normal affect. Course Vital Signs Vital signs: Vital Signs Temperature 98.0 F 12/01/23 17:20 Pulse Rate 98 12/01/23 17:20 Respiratory Rate 16 12/01/23 17:20 Blood Pressure 138/94 H 12/01/23 17:20 Pulse Oximetry 100 12/01/23 17:20 Oxygen Delivery Room Air 12/01/23 17:20 Temperature 98.0 F 12/01/23 17:20 Pulse Rate 98 12/01/23 17:20 Respiratory Rate 16 12/01/23 17:20 Blood Pressure 138/94 H 12/01/23 17:20 Pulse Oximetry 100 12/01/23 18:56 Oxygen Delivery Room Air 12/01/23 18:56 MDM - Skin/Abscess/Foreign Bdy MDM Narrative Medical decision making narrative: Patient presents with the above complaint. Initial vitals are remarkable for no significant abnormalities. Physical examination as noted above. Plan discussed: In TH relief with Benadryl a prescription for such, supportive care. Patient's lesions appear consistent with chigger bites. Patient instructed on ways to avoid exposures in the future. Patient provided with strict return precautions and follow-up with the primary care physician. Discharge Plan Discharge Clinical Impression: Chigger bites Patient Disposition: Home, Self-Care Condition: Stable Instructions: Antibiotic Form, Chigger Bite (ED) Additional Instructions: Follow-up with your primary care physician, use medications as prescribed, return immediately to the emergency department for any new or concerning symptoms. Prescriptions: New
[2023-12-01] MEDS: diphenhydrAMINE HCl CAP 25 MG CAPSULE 50 MG PO (19:46)
[2023-12-01] MEDS: DIPHENHYDRAMINE 1%/ZINC 0.1% CREAM 30 GM TUBE 1 APPLIC TOPICAL (19:46)
== END 2023-12-01 19:49 | disposition home or self-care (01) ==
PROVIDERS: Emergency Provider Student in an Organized Health Care Education/Training Program
DX: B88.0 Other acariasis (principal)
CPT/HCPCS: 99283; A9270

== ENCOUNTER 2023-12-04 17:45 | Emergency (ER) | payer OTHER, SELFPAY ==
[2023-12-04 17:55] VITALS: BP 124/87; PULSE 83; RESP 18; TEMP 36.3; O2SAT 99
--- NOTE | 2023-12-04 17:58 | ED.SKABFB ---
HPI - Skin/Abscess/Foreign Bdy General Chief complaint: Skin/Abscess/Foreign Body Stated complaint: RASH/ITCHING History of Present Illness HPI narrative: 38-year-old female presents emergency department for an itching rash for approximately 1 week. 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 She was seen in our emergency department on 11/30 for the rash. She is prescribed Benadryl advised follow-up with her PCP. She presents today because the Benadryl not been helping. She has not tried topical or oral steroids. She denies fever, nausea vomiting, recent illness, lesions to the palms or soles of her feet, lesions to her mouth. Denies change in detergents or lotions, soaps. Related Data Allergies Allergy/AdvReac Type Severity Reaction Status Date / Time morphine Allergy Unknown Verified 12/01/23 17:23 Review of Systems Review of Systems: All systems reviewed & are unremarkable except as noted in HPI and below PMFSH Past Medical History Medical History Healthy female adult Surgical History Surgical History No pertinent past surgical history Social History Social History Smoking status: Never smoker Exam Narrative: GENERAL: Well-appearing, well-nourished, and in no acute distress. HEAD: Normocephalic, atraumatic. NECK: Supple. CHEST: Clear to auscultation. No respiratory distress. HEART: Regular rate and rhythm. No murmur heard. Normal peripheral pulses. EXTREMITIES: Normal range of motion. No edema. SKIN: Small pinpoint erythematous papules scattered throughout the upper and lower extremities, abdomen and back. No secondary signs of infection. No discrimination. No vesicles NEURO: No focal deficits. Alert and oriented x3 Course Vital Signs Vital signs: Vital Signs Temperature 97.4 F L 12/04/23 17:55 Pulse Rate 83 12/04/23 17:55 Respiratory Rate 18 12/04/23 17:55 Blood Pressure 124/87 12/04/23 17:55 Pulse Oximetry 99 08/01/24 17:55 Oxygen Delivery Room Air 12/04/23 17:55 Temperature 97.4 F L 12/04/23 17:55 Pulse Rate 83 12/04/23 17:55 Respiratory Rate 18 12/04/23 17:55 Blood Pressure 124/87 12/04/23 17:55 Pulse Oximetry 99 12/04/23 17:55 Oxygen Delivery Room Air 12/04/23 17:55 MDM - Skin/Abscess/Foreign Bdy MDM Narrative Medical decision making narrative: 38-year-old female presents emergency department for a pruritic rash approximately 1 week that developed after doing yd work. She has been taking Benadryl without improvement. Vitals are stable. She is afebrile nontoxic appearing. Exam significant for small pinpoint papules throughout. Possible allergic dermatitis. Will provide IM Decadron and p.o. steroids. Advised her to follow-up closely with her PCP. Strict ED return precautions provided. She is agreeable to plan verbalized understanding. Discharged in stable condition Discharge Plan Discharge Clinical Impression: Rash Patient Disposition: Home, Self-Care Condition: Stable Instructions: Antibiotic Form, Acute Rash (ED) Additional Instructions: Please take the steroids as directed and [id number] Benadryl as needed for itching. Please follow closely the primary care provider. Return to the emergency department if he developed lesions to your palms or soles, lesions in her mouth, fever, vomiting or other concerning symptoms Prescriptions: New [id number] 1-0.4-0.4 % cream 1 applic topical BID PRN (Reason: itching) Qty: 113 0RF methylprednisolone [Medrol (Tre)] 4 mg tablets,dose pack See Rx Instructions PO .COMPLEX Qty: 21 0RF Rx Instructions: orally per package directions No Action hydrocodone-acetaminophen 5-325 mg tablet 1 tablet PO Q6H PRN (Reason: pa
[2023-12-04 19:55] VITALS: BP 143/92; PULSE 72; RESP 18; TEMP 36.7; O2SAT 96
[2023-12-04] MEDS: dexAMETHasone SOD PHOS INJ 10 MG/ML 1 ML VIAL IM (20:46)
== END 2023-12-04 20:56 | disposition home or self-care (01) ==
LOC: ANHED 20:10
PROVIDERS: Emergency Provider Physician Assistant
DX: R21 Rash and other nonspecific skin eruption (principal)
CPT/HCPCS: 96372; 99283; J1100

== ENCOUNTER 2023-12-19 06:48 | Emergency (ER) | payer OTHER, SELFPAY ==
[2023-12-19 06:48] VITALS: BP 146/100; PULSE 102; RESP 16; TEMP 37; O2SAT 98
--- NOTE | 2023-12-19 07:22 | ED.GENADULT ---
HPI - General Adult General Chief complaint: Headache Stated complaint: headache Time Seen by Provider: 12/19/23 06:54 History of Present Illness HPI narrative: 38-year-old female presenting to the emergency department for evaluation for intermittent headache. Patient states she does sometimes get headaches but they are also very common and her family including her mother. Patient describes a posterior headache that radiates from her neck upper across her scalp. Patient has been taking Tylenol and ibuprofen for pain control and does report some improvement. Patient states the current headache has been going on for the last 3-4 days. Related Data Allergies Allergy/AdvReac Type Severity Reaction Status Date / Time morphine Allergy Unknown Verified 12/01/23 17:23 Review of Systems Review of Systems: All systems reviewed & are unremarkable except as noted in HPI and below PMFSH Past Medical History Medical History Healthy female adult Surgical History Surgical History No pertinent past surgical history Social History Social History Smoking status: Never smoker Exam Narrative: APPEARANCE: Uncomfortable appearing due to headache HEAD: normocephalic, atraumatic. EYES: PERRLA/EOMI, conjunctivae clear. NOSE: Normal no drainage EARS:TMS clear with good light reflex. THROAT: Pharynx clear, no exudate. NECK: Supple. No adenopathy, no masses. RESPIRATORY: Airway patent, respirations nonlabored. Clear to auscultation bilaterally, no rales, rhonchi, wheezing. CARDIOVASCULAR: Regular rate and rhythm without murmurs rubs or gallops. ABDOMINAL: Soft, nontender, nondistended, normal bowel sounds MUSCULOSKELETAL: Moves all extremities. Strength/ROM intact, No edema, No calf tenderness. NEURO: Alert. Cranial nerves II through XII intact. Grossly intact SKIN: Warm, dry. Normal Color Course Course Emergency Course: Patient was discharged home after improvement Vital Signs Vital signs: Vital Signs Temperature 98.6 F 12/19/23 06:48 Pulse Rate 102 H 12/19/23 06:48 Respiratory Rate 16 12/19/23 06:48 Blood Pressure 146/100 H 12/19/23 06:48 Pulse Oximetry 98 12/19/23 06:48 Temperature 98.6 F 12/19/23 06:48 Pulse Rate 94 12/19/23 09:35 Respiratory Rate 18 12/19/23 09:35 Blood Pressure 149/84 H 12/19/23 09:35 Pulse Oximetry 99 12/19/23 09:35 Medical Decision Making MDM Narrative Medical decision making narrative: 38-year-old female presenting to the emergency department for evaluation for headache for the last 3 days. Patient does describe a migraine headache. Patient was treated with Toradol, Compazine, Benadryl and IV fluids and patient did feel improved with treatment. Patient was encouraged of close follow-up with her primary care physician. All questions concerns were addressed. Differential Diagnosis Differential Diagnosis: Dehydration, headache, migraine Vital Signs Vital Signs: Vital Signs Temperature 98.6 F 12/19/23 06:48 Pulse Rate 102 H 12/19/23 06:48 Respiratory Rate 16 12/19/23 06:48 Blood Pressure 146/100 H 12/19/23 06:48 Pulse Oximetry 98 12/19/23 06:48 Temperature 98.6 F 12/19/23 06:48 Pulse Rate 94 12/19/23 09:35 Respiratory Rate 18 12/19/23 09:35 Blood Pressure 149/84 H 12/19/23 09:35 Pulse Oximetry 99 12/19/23 09:35 Discharge Plan Discharge Clinical Impression: Migraine Patient Disposition: Home, Self-Care Condition: Stable Instructions: Antibiotic Form, Migraine Headache (ED), Acute Headache (ED) Additional Instructions: Have close follow-up with your primary care physician. If you have any worsening symptoms then please call or return the emergency department. Follow-up/Referrals: UNKNOWN,DOCTOR [Primary Care Provider]
[2023-12-19] MEDS: SODIUM CHLORIDE 0.9% IV 1,000 ML 999 ML IV CONT (07:57)
[2023-12-19] MEDS: diphenhydrAMINE HCl INJ 50 MG/ML VIAL 25 MG IV PUSH (07:59)
[2023-12-19] MEDS: KETOROLAC 15 MG/ML VIAL (*BKC) IV PUSH (08:00)
[2023-12-19] MEDS: PROCHLORPERAZINE EDISYLATE 10 MG/2 ML VIAL IV PUSH (08:02)
[2023-12-19 08:30] VITALS: BP 136/84; PULSE 100; RESP 16; O2SAT 99
[2023-12-19 09:35] VITALS: BP 149/84; PULSE 94; RESP 18; O2SAT 99
== END 2023-12-19 09:38 | disposition home or self-care (01) ==
PROVIDERS: Emergency Provider Emergency Medicine
DX: G43.909 Migraine, unspecified, not intractable, without status migrainosus (principal)
CPT/HCPCS: 96361; 96374; 96375; 99284; J0780; J1200; J1885; J7030

== ENCOUNTER 2024-02-09 02:37 | Emergency (ER) | payer BC, SELFPAY ==
[2024-02-09 02:41] VITALS: BP 154/99; PULSE 79; RESP 20; TEMP 36.7; O2SAT 98
--- NOTE | 2024-02-09 03:17 | ED.GENADULT ---
HPI - General Adult General Chief complaint: Dental/Oral Stated complaint: Bad mouth pain Time Seen by Provider: 02/09/24 02:56 History of Present Illness HPI narrative: Patient 38-year-old female who presents emergency department chief complaint of dental pain. Patient reports that she has partial plates and has multiple bad teeth the patient states that she has been taking oral pain medications at home without relief the patient states she has not seen a dentist the patient denies fever reports she has a little bit of swelling in her right side of her face patient denies trismus denies shortness of breath denies stridor Related Data Allergies Allergy/AdvReac Type Severity Reaction Status Date / Time morphine Allergy Unknown Verified 02/09/24 02:44 Review of Systems Review of Systems: A 10 system review of systems was completed on the patient and is negative except for what is stated in the HPI. Nursing and ancillary documentation was reviewed. [facility] Past Medical History Medical History Healthy female adult Surgical History Surgical History No pertinent past surgical history Social History Social History Smoking status: Never smoker Exam Narrative: GENERAL: Well-appearing, well-nourished, and in no acute distress. HEAD: Normocephalic, atraumatic. EYES: PERRLA and EOMI. ENT: Nares clear, no rhinorrhea or epistaxis. Mucous membranes moist., multiple decaying teeth no trismus no crepitance no stridor NECK: Supple. CHEST: Clear to auscultation. No respiratory distress. HEART: Regular rate and rhythm. No murmur heard. Normal peripheral pulses. ABDOMEN: Soft, nontender, nondistended, normal active bowel sounds. EXTREMITIES: Normal range of motion. No edema. SKIN: Warm, dry, no rash. NEURO: No focal deficits. Alert and oriented x3. PSYCH: Normal mood and affect. Course Vital Signs Vital signs: Vital Signs Temperature 36.7 C 02/09/24 02:41 Pulse Rate 79 02/09/24 02:41 Respiratory Rate 20 02/09/24 02:41 Blood Pressure 154/99 H 02/09/24 02:41 Pulse Oximetry 98 02/09/24 02:41 Oxygen Delivery Room Air 02/09/24 02:41 Temperature 36.7 C 02/09/24 02:41 Pulse Rate 79 02/09/24 02:41 Respiratory Rate 20 02/09/24 02:41 Blood Pressure 154/99 H 02/09/24 02:41 Pulse Oximetry 98 02/09/24 02:41 Oxygen Delivery Room Air 02/09/24 02:41 Medical Decision Making MDM Narrative Medical decision making narrative: Differential diagnosis includes dental abscess, dental caries The patient shows no signs of trench mouth no signs of Wesley's angina Patient was started on Augmentin was given a dose of [place] in the emergency department tonight and should follow up with a dentist Vital Signs Vital Signs: Vital Signs Temperature 36.7 C 02/09/24 02:41 Pulse Rate 79 02/09/24 02:41 Respiratory Rate 20 02/09/24 02:41 Blood Pressure 154/99 H 02/09/24 02:41 Pulse Oximetry 98 02/09/24 02:41 Oxygen Delivery Room Air 02/09/24 02:41 Temperature 36.7 C 02/09/24 02:41 Pulse Rate 79 02/09/24 02:41 Respiratory Rate 20 02/09/24 02:41 Blood Pressure 154/99 H 02/09/24 02:41 Pulse Oximetry 98 02/09/24 02:41 Oxygen Delivery Room Air 02/09/24 02:41 Discharge Plan Discharge Clinical Impression: Dental abscess, Dental caries Patient Disposition: Home, Self-Care Condition: Stable Instructions: Antibiotic Form, Dental Abscess (ED), Toothache (ED) Prescriptions: New amoxicillin-pot clavulanate 875-125 mg tablet 1 tablet PO Q12H 10 Days Qty: 20 0RF Follow-up/Referrals: Ramon Elias MD [Physician] - UNKNOWN,DOCTOR [Primary Care Provider] - Stand Alone Forms: Work/School Release IP
[2024-02-09] MEDS: HYDROcodone/acetaminophen (*CRX) 5-325 MG TABLET 1 TAB PO (03:27)
[2024-02-09] MEDS: AMOXICILLIN/CLAVULANATE K 875-125 MG TAB 1 TABLET PO (03:27)
== END 2024-02-09 03:32 | disposition home or self-care (01) ==
PROVIDERS: Emergency Provider Emergency Medicine
DX: K04.7 Periapical abscess without sinus (principal); K02.9 Dental caries, unspecified
CPT/HCPCS: 99283; A9270

== ENCOUNTER 2024-02-09 13:51 | Emergency (ER) | payer BC, SELFPAY ==
[2024-02-09 14:02] VITALS: BP 155/100; PULSE 75; RESP 20; TEMP 36.3; O2SAT 98
--- NOTE | 2024-02-09 15:04 | ED.GENADULT ---
HPI - General Adult General Chief complaint: Dental/Oral Stated complaint: mouth pain Time Seen by Provider: 02/09/24 14:51 History of Present Illness HPI narrative: 38-year-old female presenting to the emergency department for evaluation for persistent dental pain. Patient was evaluated in the emergency department earlier today and diagnosed with facial swelling/dental infection. Patient was provided medications for pain control emergency department and provided a script for antibiotics. Patient states she has not take anything for pain control including Tylenol or ibuprofen since 3:00 a.m.. Patient states that she has not yet had a chance to fill her antibiotic. Patient presents the to ED complaining of worsening facial pain. Patient does not appear to be in any distress. Related Data Allergies Allergy/AdvReac Type Severity Reaction Status Date / Time morphine Allergy Unknown Verified 02/09/24 02:44 Review of Systems Review of Systems: All systems reviewed & are unremarkable except as noted in HPI and below PMFSH Past Medical History Medical History Healthy female adult Surgical History Surgical History No pertinent past surgical history Social History Social History Smoking status: Never smoker Exam Narrative: APPEARANCE: Well appearing, no pain, no distress, well-nourished. HEAD: normocephalic, atraumatic. EYES: PERRLA/EOMI, conjunctivae clear. NOSE: Normal no drainage EARS:TMS clear with good light reflex. THROAT: Pharynx clear, no exudate. NECK: Supple. No adenopathy, no masses. RESPIRATORY: Airway patent, respirations nonlabored. Clear to auscultation bilaterally, no rales, rhonchi, wheezing. CARDIOVASCULAR: Regular rate and rhythm without murmurs rubs or gallops. ABDOMINAL: Soft, nontender, nondistended, normal bowel sounds MUSCULOSKELETAL: Moves all extremities. Strength/ROM intact, No edema, No calf tenderness. NEURO: Alert. Cranial nerves II through XII intact. Good gait. Good coordination SKIN: Right-sided facial swelling with no abscess amenable to drainage Course Vital Signs Vital signs: Vital Signs Temperature 97.3 F L 02/09/24 14:02 Pulse Rate 75 10/07/24 14:02 Respiratory Rate 20 02/09/24 14:02 Blood Pressure 155/100 H 02/09/24 14:02 Pulse Oximetry 98 02/09/24 14:02 Oxygen Delivery Room Air 02/09/24 14:02 Temperature 97.3 F L 02/09/24 14:02 Pulse Rate 75 02/09/24 14:02 Respiratory Rate 20 02/09/24 14:02 Blood Pressure 155/100 H 02/09/24 14:02 Pulse Oximetry 98 02/09/24 14:02 Oxygen Delivery Room Air 02/09/24 14:02 Medical Decision Making MDM Narrative Medical decision making narrative: 38-year-old female presented to the emergency department for evaluation for persistent dental pain. Patient was given an additional Augmentin the emergency department, IM Toradol and provided additional Winlock for pain control. Patient will be provided a small prescription for Winlock. Vital Signs Vital Signs: Vital Signs Temperature 97.3 F L 02/09/24 14:02 Pulse Rate 75 02/09/24 14:02 Respiratory Rate 20 02/09/24 14:02 Blood Pressure 155/100 H 02/09/24 14:02 Pulse Oximetry 98 02/09/24 14:02 Oxygen Delivery Room Air 02/09/24 14:02 Temperature 97.3 F L 02/09/24 14:02 Pulse Rate 75 02/09/24 14:02 Respiratory Rate 20 02/09/24 14:02 Blood Pressure 155/100 H 02/09/24 14:02 Pulse Oximetry 98 02/09/24 14:02 Oxygen Delivery Room Air 02/09/24 14:02 Discharge Plan Discharge Clinical Impression: Dental caries, Toothache Patient Disposition: Home, Self-Care Condition: Stable Instructions: Antibiotic Form Additional Instructions: Take your antibiotics as described. Ibuprofen for pain control. Winlock as needed for addit
[2024-02-09] MEDS: HYDROcodone/acetaminophen (*CRX) 5-325 MG TABLET 1 TAB PO (15:15)
[2024-02-09] MEDS: KETOROLAC 30 MG/ML VIAL (*BKC) IM (15:15)
[2024-02-09] MEDS: AMOXICILLIN/CLAVULANATE K 875-125 MG TAB 1 TABLET PO (15:15)
== END 2024-02-09 15:38 | disposition home or self-care (01) ==
PROVIDERS: Emergency Provider Emergency Medicine
DX: K02.9 Dental caries, unspecified (principal)
CPT/HCPCS: 96372; 99283; A9270; J1885

== ENCOUNTER 2024-04-20 05:02 | Emergency (ER) | payer BC, SELFPAY ==
[2024-04-20 05:04] VITALS: BP 132/86; PULSE 93; RESP 16; TEMP 36.8; O2SAT 100
--- NOTE | 2024-04-20 07:23 | ED.GENADULT ---
HPI - General Adult General Chief complaint: Ear Stated complaint: left sided facial soreness Time Seen by Provider: 04/20/24 06:54 History of Present Illness HPI narrative: 38-year-old female presents to the emergency department for evaluation for left ear pain. Patient reports symptoms started few days ago. Patient does have a history of an ear infection on the right when she was a child and did have significant hearing loss and patient is concerned about a current ear infection. Related Data Allergies Allergy/AdvReac Type Severity Reaction Status Date / Time morphine Allergy Unknown Verified 04/20/24 05:10 Review of Systems Review of Systems: All systems reviewed & are unremarkable except as noted in HPI and below PMFSH Past Medical History Medical History Healthy female adult Surgical History Surgical History No pertinent past surgical history Social History Social History Smoking status: Never smoker Exam Narrative: APPEARANCE: Well appearing, no pain, no distress, well-nourished. HEAD: normocephalic, atraumatic. EYES: PERRLA/EOMI, conjunctivae clear. NOSE: Normal no drainage EARS: Fluid behind left TM, no mastoid tenderness THROAT: Pharynx clear, no exudate. NECK: Supple. No adenopathy, no masses. RESPIRATORY: Airway patent, respirations nonlabored. Clear to auscultation bilaterally, no rales, rhonchi, wheezing. CARDIOVASCULAR: Regular rate and rhythm without murmurs rubs or gallops. ABDOMINAL: Soft, nontender, nondistended, normal bowel sounds MUSCULOSKELETAL: Moves all extremities. Strength/ROM intact, No edema, No calf tenderness. NEURO: Alert. Cranial nerves II through XII intact. Good gait. Good coordination SKIN: Warm, dry. Normal Color Course Vital Signs Vital signs: Vital Signs Temperature 98.3 F 04/20/24 05:04 Pulse Rate 93 04/20/24 05:04 Respiratory Rate 16 04/20/24 05:04 Blood Pressure 132/86 04/20/24 05:04 Pulse Oximetry 100 04/20/24 05:04 Oxygen Delivery Room Air 04/20/24 05:04 Temperature 98.3 F 04/20/24 05:04 Pulse Rate 93 04/20/24 05:04 Respiratory Rate 16 04/20/24 05:04 Blood Pressure 132/86 04/20/24 05:04 Pulse Oximetry 100 04/20/24 05:04 Oxygen Delivery Room Air 04/20/24 05:04 Medical Decision Making MDM Narrative Medical decision making narrative: 38-year-old female presenting emergency department for evaluation for left ear pain. Patient does have some bulging of the left TM with fluid behind the left TM with no significant erythema. Patient has no trismus and no abnormalities on her posterior pharynx. Patient is being started on antibiotics for a suspected left ear infection. Patient was advised to take Tylenol and ibuprofen for pain control and to take antibiotics as directed. Vital Signs Vital Signs: Vital Signs Temperature 98.3 F 04/20/24 05:04 Pulse Rate 93 04/20/24 05:04 Respiratory Rate 16 04/20/24 05:04 Blood Pressure 132/86 04/20/24 05:04 Pulse Oximetry 100 04/20/24 05:04 Oxygen Delivery Room Air 04/20/24 05:04 Temperature 98.3 F 04/20/24 05:04 Pulse Rate 93 04/20/24 05:04 Respiratory Rate 16 04/20/24 05:04 Blood Pressure 132/86 04/20/24 05:04 Pulse Oximetry 100 04/20/24 05:04 Oxygen Delivery Room Air 04/20/24 05:04 Discharge Plan Discharge Clinical Impression: Otitis media Patient Disposition: Home, Self-Care Condition: Stable Instructions: Antibiotic Form, Earache (ED) Additional Instructions: Tylenol and ibuprofen for pain control, antibiotics as directed until completed. Have close follow-up with your primary care physician. Patient Language: Kinyarwanda Prescriptions: New amoxicillin-pot clavulanate 875-125 mg tablet 1 tablet PO Q12H Qty: 14 0RF No Action amoxicillin-pot clavulanate 875-125 mg tablet 1 tablet PO Q12H 10 Days Qty: 20 0RF hydrocodone-acetaminophen 5-325 mg tablet 1 tablet PO Q8H PRN (Reason: pain) Qty: 14 0RF Follow-up/Referrals: UNKNOWN,DOCTOR [Non-Staff] -
[2024-04-20] MEDS: AMOXICILLIN/CLAVULANATE K 875-125 MG TAB 1 TABLET PO (07:36)
== END 2024-04-20 07:53 | disposition home or self-care (01) ==
LOC: ANHED 07:32
PROVIDERS: Emergency Provider Emergency Medicine; PCP Emergency Medicine
DX: H66.92 Otitis media, unspecified, left ear (principal)
CPT/HCPCS: 99283; A9270

== ENCOUNTER 2024-04-25 06:10 | Emergency (ER) | payer BC, SELFPAY ==
[2024-04-25 06:20] VITALS: BP 140/90; PULSE 98; RESP 15; TEMP 36.4; O2SAT 97
--- NOTE | 2024-04-25 07:33 | ED_ITS ---
HPI - General Adult General Chief complaint: Headache Stated complaint: eadachex3 days Time Seen by Provider: 04/25/24 07:00 History of Present Illness HPI narrative: Patient is a 38-year-old female who presents ER with frontal headache for last 3 days. Had something similar when she had a ear infection previously. No change in vision. No fevers or chills or sweats. No runny nose or sore throat or cough. Mild achiness in the neck. No numbness or tingling. Improves with Tylenol and ibuprofen. Related Data Allergies Allergy/AdvReac Type Severity Reaction Status Date / Time morphine Allergy Unknown Verified 04/25/24 06:22 Review of Systems Constitutional: Constitutional: Reports no additional constitutional co mplaints Eyes: Eyes: Reports no additional eye complaints ENT: Reports system reviewed and no additional complaints, except as documented Neurologic: Reports system reviewed and no additional complaints, except as documented PMFSH Past Medical History Medical History Healthy female adult Surgical History Surgical History No pertinent past surgical history Social History Social History Smoking status: Never smoker Exam Narrative: GENERAL: Well-appearing, well-nourished, and in no acute distress. HEAD: Normocephalic, atraumatic. EYES: PERRL and EOMI. ENT: Mucous membranes moist. TMs normal bilaterally. Ear canals with scant cerumen. NECK: Supple. CHEST: Clear to auscultation. No respiratory distress. HEART: Regular rate and rhythm. Normal peripheral pulses. EXTREMITIES: Normal range of motion. No edema. NEURO: Alert and oriented x3. PSYCH: Normal mood and affect. Course Course Emergency Course: Nontoxic appearing. Reports she needs to go work and would only like pain medication no additional workup. Discussed she may have a viral syndrome or other issue occurring but she declines testing. Toradol IM x1 and discharge. Vital Signs Vital signs: Vital Signs Temperature 97.6 F 04/25/24 06:20 Pulse Rate 98 04/25/24 06:20 Respiratory Rate 15 04/25/24 06:20 Blood Pressure 140/90 04/25/24 06:20 Pulse Oximetry 97 04/25/24 06:20 Oxygen Delivery Room Air 04/25/24 06:20 Temperature 97.6 F 04/25/24 06:20 Pulse Rate 98 04/25/24 06:20 Respiratory Rate 15 04/25/24 06:20 Blood Pressure 140/90 04/25/24 06:20 Pulse Oximetry 97 04/25/24 06:20 Oxygen Delivery Room Air 04/25/24 06:20 Medical Decision Making Vital Signs Vital Signs: Vital Signs Temperature 97.6 F 04/25/24 06:20 Pulse Rate 98 04/25/24 06:20 Respiratory Rate 15 04/25/24 06:20 Blood Pressure 140/90 04/25/24 06:20 Pulse Oximetry 97 04/25/24 06:20 Oxygen Delivery Room Air 04/25/24 06:20 Temperature 97.6 F 04/25/24 06:20 Pulse Rate 98 04/25/24 06:20 Respiratory Rate 15 04/25/24 06:20 Blood Pressure 140/90 04/25/24 06:20 Pulse Oximetry 97 04/25/24 06:20 Oxygen Delivery Room Air 04/25/24 06:20 Discharge Plan Discharge Clinical Impression: Headache Patient Disposition: Home, Self-Care Condition: Stable Instructions: Tension Headache (ED) Additional Instructions: return ER if you have worsening of her headache, you cannot keep down food /water / medication, you lose consciousness, or you have additional concerns. Patient Language: Latvian Prescriptions: No Action amoxicillin-pot clavulanate 875-125 mg tablet 1 tablet PO Q12H 10 Days Qty: 20 0RF hydrocodone-acetaminophen 5-325 mg tablet 1 tablet PO Q8H PRN (Reason: pain) Qty: 14 0RF amoxicillin-pot clavulanate 875-125 mg tablet 1 tablet PO Q12H Qty: 14 0RF Follow-up/Referrals: Ramon Elias MD [Primary Care Provider] - 1 Week
[2024-04-25] MEDS: KETOROLAC (*BKC) 60 MG/2 ML VIAL IM (07:40)
[2024-04-25 07:45] VITALS: BP 140/85; PULSE 100; RESP 16; O2SAT 100
== END 2024-04-25 07:45 | disposition home or self-care (01) ==
PROVIDERS: Emergency Provider Emergency Medicine; PCP Emergency Medicine
DX: R51.9 Headache, unspecified (principal)
CPT/HCPCS: 96372; 99283; J1885

== ENCOUNTER 2024-10-04 10:39 | Emergency (ER) | payer BC, SELFPAY ==
[2024-10-04 10:43] VITALS: BP 172/109; PULSE 84; RESP 20; TEMP 36.4; O2SAT 99
[2024-10-04] MEDS: KETOROLAC 30 MG/ML VIAL (*BKC) IM (11:40)
[2024-10-04] MEDS: ACETAMINOPHEN 325 MG TABLET 650 MG PO (11:41)
[2024-10-04] MEDS: HYDROcodone/acetaminophen (*CRX) 5-325 MG TABLET 1 TAB PO (11:42)
--- NOTE | 2024-10-04 12:20 | ED_ITS ---
HPI - Dental/Oral General Chief complaint: Dental/Oral Stated complaint: dental pain Time Seen by Provider: 10/04/24 11:26 Source: patient Mode of arrival: ambulatory Limitations: no limitations History of Present Illness HPI Narrative: This is a 39 year old female that presents to the ER for dentalgia. Reports poor dentition, has had to have several teeth pulled. Is due to have the affected teeth pulled, but her appointment is not for another couple of weeks. She has been taking over the counter pain medications with little relief. Denies fevers. MD Complaint: tooth pain Location: Tooth # (13, 14) Related Data Allergies Allergy/AdvReac Type Severity Reaction Status Date / Time morphine Allergy Unknown Verified 04/25/24 06:22 Review of Systems Review of Systems: All systems reviewed & are unremarkable except as noted in HPI and below PMFSH Past Medical History Medical History Healthy female adult Surgical History Surgical History No pertinent past surgical history Social History Social History Smoking status: Never smoker Exam Narrative: GENERAL: Well-appearing, well-nourished, and in no acute distress. HEAD: Normocephalic, atraumatic. EYES: EOMI. ENT: Nares clear, no rhinorrhea or epistaxis. Mucous membranes moist. Oropharynx without tonsillar hypertrophy exudate or other lesions. Poor dentition. No edema or fluctuance to suggest abscess NECK: Supple. No adenopathy or masses. CHEST: No respiratory distress. HEART: Regular rate EXTREMITIES: Normal range of motion. No edema. SKIN: Warm, dry, no rash. NEURO: No focal deficits. Alert and oriented x3. PSYCH: Normal mood and affect Course Vital Signs Vital signs: Vital Signs Temperature 97.6 F 10/04/24 10:43 Pulse Rate 84 10/04/24 10:43 Respiratory Rate 20 10/04/24 10:43 Blood Pressure 172/109 H 10/04/24 10:43 Pulse Oximetry 99 10/04/24 10:43 Oxygen Delivery Room Air 10/04/24 10:43 Temperature 97.6 F 10/04/24 10:43 Pulse Rate 84 10/04/24 10:43 Respiratory Rate 20 10/04/24 10:43 Blood Pressure 172/109 H 10/04/24 10:43 Pulse Oximetry 99 10/04/24 10:43 Oxygen Delivery Room Air 10/04/24 10:43 MDM - Dental/Oral MDM Narrative Medical decision making narrative: Patient presents to the ER for dentalgia. She is afebrile and nontoxic appearing. No abscess on exam. Will be started on oral antibiotics, she has an appointment with her dentist in the coming weeks. Differential Diagnosis Differential diagnosis: Likely dental caries, toothache, dental abscess and fracture of tooth Critical Care Time Critical Care Time Critical Care Time: No Discharge Plan Discharge Clinical Impression: Toothache Patient Disposition: Home Condition: Stable Instructions: Antibiotic Form, Toothache (ED) Additional Instructions: Return to the Emergency Department if you experience fever >101, increasing s welling and redness of your tooth, or any other symptoms that are concerning to you Take antibiotic as prescribed. Tylenol or Ibuprofen as needed for pain. Prescribed pain medication as needed Follow up with your dentist Patient Language: [place] Citizen Prescriptions: New amoxicillin-pot clavulanate 875-125 mg tablet 1 tablet PO Q12H 10 Days Qty: 20 0RF hydrocodone-acetaminophen 5-325 mg tablet 1 tablet PO Q6H PRN (Reason: pain) Qty: 14 0RF No Action amoxicillin-pot clavulanate 875-125 mg tablet 1 tablet PO Q12H 10 Days Qty: 20 0RF hydrocodone-acetaminophen 5-325 mg tablet 1 tablet PO Q8H PRN (Reason: pain) Qty: 14 0RF amoxicillin-pot clavulanate 875-125 mg tablet 1 tablet PO Q12H Qty: 14 0RF Follow-up/Referrals: Ramon Elias MD [Primary Care Provider] -
[2024-10-04 12:34] VITALS: BP 130/88; PULSE 84; RESP 16; O2SAT 99
== END 2024-10-04 12:35 | disposition home or self-care (01) ==
LOC: ANHED 12:27
PROVIDERS: Emergency Provider Physician Assistant; PCP Emergency Medicine
DX: K08.9 Disorder of teeth and supporting structures, unspecified (principal)
CPT/HCPCS: 96372; 99283; A9270; J1885

== ENCOUNTER 2024-10-04 21:25 | Emergency (ER) | payer BC, SELFPAY ==
[2024-10-04 21:56] VITALS: BP 185/99; PULSE 73; RESP 16; TEMP 36.5; O2SAT 99
[2024-10-05 00:36] VITALS: BP 151/95; PULSE 69; RESP 17; O2SAT 98
[2024-10-05 00:37] VITALS: O2SAT 99
[2024-10-05] MEDS: FAMOTIDINE 20 MG/2 ML VIAL IV PUSH (01:26)
[2024-10-05] MEDS: diphenhydrAMINE HCl INJ 50 MG/ML VIAL 25 MG IV PUSH (01:26)
[2024-10-05] MEDS: methylPREDNISolone SOD SUCC 125 MG VIAL IV PUSH (01:26)
[2024-10-05] MEDS: KETOROLAC 30 MG/ML VIAL (*BKC) IV PUSH (01:27)
[2024-10-05] MEDS: ACETAMINOPHEN 500 MG TABLET 1000 MG PO (01:27)
--- NOTE | 2024-10-05 03:30 | ED.ALLEREA ---
HPI - Allergic Reaction General Chief complaint: Allergic Reaction Stated complaint: Poss allergic reaction-facial redness/swelling Time Seen by Provider: 10/05/24 00:05 Source: patient Mode of arrival: ambulatory Limitations: no limitations History of Present Illness HPI narrative: Patient is a 39-year-old female who presents the ED with report of left-sided facial rash. Patient reports she was seen in the ED earlier today for dental pain. She is scheduled to undergo extraction of her remaining left upper teeth on 10/14 with her dentist. States she began having increased pain today. Was Rx'd augmentin and given norco for pain in the ED. she then took another [place] this evening around 5:00 p.m.. She states within an hour of taking the medication, she began having rash, redness, swelling to her left-sided facial cheek. She became concerned for other drug reaction and prompted here for further evaluation. Denies difficulty breathing or swelling. Denies swelling of lips/tongue/throat. She has had [place] Path before, but denies ever having a reaction like this. Has also taken Augmentin in the past for dental infections. Related Data Allergies Allergy/AdvReac Type Severity Reaction Status Date / Time hydrocodone Allergy Intermediate facial Verified 10/05/24 01:04 swelling morphine Allergy Unknown Verified 10/05/24 00:39 Review of Systems Review of Systems: All systems reviewed & are unremarkable except as noted in HPI. All systems reviewed & are unremarkable except as noted in HPI and below PMFSH Past Medical History Medical History Healthy female adult Surgical History Surgical History No pertinent past surgical history Social History Social History Smoking status: Never smoker Exam Narrative: GENERAL: Anxious appearing, well-nourished, non-toxic, in no acute distress. HEAD: Normocephalic, atraumatic. ENT: Mucous membranes are moist. Diffuse dental decay. Several previous dental extractions. Tenderness to palpation along left upper outer gumline without palpable fluctuance or abscess formation. No drainage. No swelling of lips/tongue/throat. Scattered macular papular rash to left facial cheek with very minimal swelling. No distinct urticaria. RESPIRATORY: Airway patent, respirations nonlabored. Clear to auscultation bilaterally, no rales, rhonchi, wheezing. No stridor or trismus. CARDIOVASCULAR: Regular rate and rhythm MUSCULOSKELETAL: Moves all extremities. No gross deformities. SKIN: Warm, dry, normal color. NEURO: A&O X3. Speech clear. PSYCHIATRIC: Anxious, tearful. Normal interaction. Course Vital Signs Vital signs: Vital Signs Temperature 97.7 F 10/04/24 21:56 Pulse Rate 73 10/04/24 21:56 Respiratory Rate 16 10/04/24 21:56 Blood Pressure 185/99 H 10/04/24 21:56 Pulse Oximetry 99 10/04/24 21:56 Oxygen Delivery Room Air 10/04/24 21:56 Temperature 97.7 F 10/04/24 21:56 Pulse Rate 69 10/05/24 00:36 Respiratory Rate 17 10/05/24 00:36 Blood Pressure 151/95 H 10/05/24 00:36 Pulse Oximetry 99 10/05/24 00:37 Oxygen Delivery Room Air 10/05/24 00:37 MDM - Allergic Reaction MDM Narrative Medical decision making narrative: Patient presented to ED with possible allergic reaction to hydrocodone. Given this for dental infection earlier today. Also on Augmentin, has had both of these medications before however states symptoms began within 1 hour taking hydrocodone tonight. No evidence of airway compromise or respiratory distress, anaphylaxis. Patient given Solu-Medrol, Benadryl, Pepcid in the ED. She was also given Toradol and Tylenol for pain. She is feeling much improved on re-evaluation. Feel she is safe for discharge home. Advised to discontinue [place] use as this potentially caused her reaction. Advised to continue Tylenol/ibuprofen as needed for pain. Advised close follow-up with her dentist for further evaluation. She does have an upcoming appointment. Given strict return precautions. She agrees with plan. Discharged in stable condition. Medical Records Attestation: I reviewed the patient's medical records. Discharge Plan Discharge Clinical Impression: Dental infection Adverse reaction to drug Qualifiers: Encounter type: initial encounter Qualified Code(s): T50.905A - Adverse effect of unspecified drugs, medicaments and biological substances, initial encounter Patient Disposition: Home Condition: Stable Instructions: Antibiotic Form, Acute Rash (ED), General Allergic Reaction (ED) Additional Instructions: Take steroids as prescribed for allergic reaction. Continue Augmentin as prescribed for dental infection. Continue Tylenol and ibuprofen as needed for pain, recommend frequent icing to face. Avoid further hydrocodone use as this potentially caused your reaction today. Follow-up with your dentist for further evaluation. Return to the ED for new or worsening concerns, difficulty breathing or swallowing, unable to keep down food or drink, persistent fevers, or any other symptoms of concern. Patient Language: Fijian Prescriptions: New methylprednisolone [Medrol (Tre)] 4 mg tablets,dose pack See Rx Instructions PO .COMPLEX Qty: 21 0RF Rx Instructions: orally per package directions No Action amoxicillin-pot clavulanate 875-125 mg tablet 1 tablet PO Q12H 10 Days Qty: 20 0RF hydrocodone-acetaminophen 5-325 mg tablet 1 tablet PO Q8H PRN (Reason: pain) Qty: 14 0RF amoxicillin-pot clavulanate 875-125 mg tablet 1 tablet PO Q12H Qty: 14 0RF amoxicillin-pot clavulanate 875-125 mg tablet 1 tablet PO Q12H 10 Days Qty: 20 0RF hydrocodone-acetaminophen 5-325 mg tablet 1 tablet PO Q6H PRN (Reason: pain) Qty: 14 0RF Follow-up/Referrals: Ramon Elias MD [Primary Care Provider] - Time of Disposition: 03:37
--- NOTE | 2024-10-05 04:32 | PC.NURSE ---
Patient asked for hydrocodone prescription to be disposed of. 13 tablets disposed of in the stericylce. Signed off by this RN & BETY Yang. Narcotic Waste form filled out and sent back to pharmacy. A copy was made and placed in the chart.
== END 2024-10-05 03:49 | disposition home or self-care (01) ==
PROVIDERS: Emergency Provider Physician Assistant; PCP Emergency Medicine
DX: K04.7 Periapical abscess without sinus (principal); T50.905A Adverse effect of unspecified drugs, medicaments and biological substances, initial encounter
CPT/HCPCS: 96374; 96375; 99284; A9270; J1200; J1885; J2919

== ENCOUNTER 2024-12-17 05:02 | Emergency (ER) | payer BC, SELFPAY ==
--- NOTE | 2024-12-17 06:01 | ED.DENTAL ---
HPI - Dental/Oral General Chief complaint: Dental/Oral Stated complaint: dental pain Time Seen by Provider: 12/17/24 05:43 History of Present Illness HPI Narrative: 39-year-old female with history of significant dental disease status post 3 teeth extractions 2 days ago. She states that she was not sent home with any pain medications as been trying conservative therapies without any room proved mint. No systemic symptoms. She is just concerned about pain and wants something for pain control. Has tried Tylenol, ibuprofen and gel without any improvement. Has had hydrocodone sensitivities in the past. Teeth map:  1. Status post 3 teeth extractions and significant dental decay, no signs of active bleeding or any masses/abscess formation. Related Data Allergies Allergy/AdvReac Type Severity Reaction Status Date / Time hydrocodone Allergy Intermediate facial Verified 10/05/24 01:04 swelling morphine Allergy Unknown Verified 10/05/24 00:39 Review of Systems Review of Systems: As reviewed above in HPI [facility] Past Medical History Medical History Healthy female adult Surgical History Surgical History No pertinent past surgical history Social History Social History Smoking status: Never smoker Exam Narrative: GENERAL: [Well-appearing, well-nourished, and in no acute distress.] HEAD: [Normocephalic, atraumatic.] EYES: [PERRLA and EOMI.] ENT: Multiple decayed teeth, status post dental extraction left upper maxillary jaw, no bleeding or significant masses or purulent drainage noted. NECK: Supple. CHEST: Nonlabored respirations EXTREMITIES: Normal range of motion. [No edema.] SKIN: Warm, dry, no rash. NEURO: [No focal deficits]. Alert and oriented [x3.] PSYCH: [Normal mood and affect.] MDM - Dental/Oral MDM Narrative Medical decision making narrative: 39-year-old female with history of significant dental disease status post 3 teeth extractions 2 days ago. She states that she was not sent home with any pain medications as been trying conservative therapies without any room proved mint. No systemic symptoms. She is just concerned about pain and wants something for pain control. Has tried Tylenol, ibuprofen and gel without any improvement. Has had hydrocodone sensitivities in the past. Patient has very significant dental disease, pain will be controlled with tramadol prescription and given intramuscular Dilaudid shot for analgesia here. Safe for discharge home at this time. Medical Records Attestation: I reviewed the patient's medical records. Discharge Plan Discharge Clinical Impression: Dentalgia Patient Disposition: Home Condition: Stable Instructions: Antibiotic Form, Toothache (ED) Additional Instructions: Follow-up with your dentist, return with any emergencies Patient Language: Maltese Prescriptions: New tramadol 50 mg tablet 50 mg PO Q6H PRN (Reason: pain) Qty: 14 0RF No Action amoxicillin-pot clavulanate 875-125 mg tablet 1 tablet PO Q12H 10 Days Qty: 20 0RF hydrocodone-acetaminophen 5-325 mg tablet 1 tablet PO Q8H PRN (Reason: pain) Qty: 14 0RF amoxicillin-pot clavulanate 875-125 mg tablet 1 tablet PO Q12H Qty: 14 0RF amoxicillin-pot clavulanate 875-125 mg tablet 1 tablet PO Q12H 10 Days Qty: 20 0RF hydrocodone-acetaminophen 5-325 mg tablet 1 tablet PO Q6H PRN (Reason: pain) Qty: 14 0RF methylprednisolone [Medrol (Tre)] 4 mg tablets,dose pack See Rx Instructions PO .COMPLEX Qty: 21 0RF Rx Instructions: orally per package directions Follow-up/Referrals: Ramon Elias MD [Primary Care Provider] - Stand Alone Forms: Work/School Release IP Time of Disposition: 06:01
[2024-12-17 06:07] VITALS: BP 174/100; PULSE 77; RESP 18; TEMP 36.8; O2SAT 99
[2024-12-17] MEDS: HYDROmorphone HCL INJ (*CRX) 1 MG/ML SYR 0.5 MG IM (06:12)
[2024-12-17 06:35] VITALS: BP 144/94; PULSE 76; RESP 18; O2SAT 96
== END 2024-12-17 06:32 | disposition home or self-care (01) ==
PROVIDERS: Emergency Provider Student in an Organized Health Care Education/Training Program; PCP Emergency Medicine
DX: K08.89 Other specified disorders of teeth and supporting structures (principal); Z98.818 Other dental procedure status
CPT/HCPCS: 96372; 99283; J1171

== ENCOUNTER 2024-12-18 20:00 | Emergency (ER) | payer BC, SELFPAY | END 2024-12-18 20:04 | disposition left against medical advice (07) | LOC: ANHED 20:06 | PROVIDERS: PCP Emergency Medicine | DX: Z53.21 Procedure and treatment not carried out due to patient leaving prior to being seen by health care provider (principal) | CPT/HCPCS: 99199 ==